=== PATIENT | male | born 1980 | race African-American/Black ===

== ENCOUNTER 2020-06-16 19:17 | Emergency (ER) | payer OTHER ==
[~2020-06-16] VITALS: Ht 170.2 cm; Wt 108.9 kg
[2020-06-16 19:41] LABS: URINE BILIRUBIN NEGATIVE (Negative); URINE BLOOD TRACE (Negative); URINE CLARITY CLEAR; URINE COLOR YELLOW; URINE GLUCOSE-RANDOM* NEGATIVE (Negative); URINE KETONES NEGATIVE (Negative); URINE LEUKOCYTES-REFLEX NEGATIVE (Negative); URINE NITRITE-REFLEX NEGATIVE (Negative); URINE PROTEIN (DIPSTICK) 2+ (Negative); URINE UROBILINOGEN 0.2 E.U./dl (0.2-1.0)
[2020-06-16 19:49] LABS: CASTS None Seen /LPF (None Seen); SQUAMOUS 4-10 Moderate /LPF (0-3)
[2020-06-16 19:50] LABS: BACTERIA-REFLEX None Seen /HPF (None Seen); CRYSTALS None Seen /LPF (None Seen); URINE RBC 0-2 Rare /HPF (0-2); URINE WBC-REFLEX 0-5 Rare /HPF (0-5)
[2020-06-16 19:55] LABS: ABSOLUTE NEUTROPHILS 5.4 thou/uL (1.4-8.2); BASOPHILS 0.9 % (0.0-2.0); EOSINOPHILS 1.2 % (0.0-3.0); HEMATOCRIT 44.9 % (42.0-52.0); HEMOGLOBIN 15.2 gm/dL (14.0-18.0); LYMPHOCYTES 19.9 % (24.0-44.0); MCH 30.7 pg (26.0-34.0); MCHC 33.9 g/dL (28.0-37.0); MCV 90.7 fL (80.0-100.0); MONOCYTES 6.2 % (1.0-8.0); PLATELET COUNT 253 thou/uL (150-400); POLYS 71.8 % (36.0-66.0); RBC 4.95 mil/uL (4.50-6.00); RDW 13.5 % (10.5-14.5); WBC 7.5 thou/uL (4.0-11.0)
[2020-06-16 20:11] LABS: CALCIUM 9.2 mg/dL (8.5-10.1); CREATININE 1.4 mg/dL (0.7-1.3)
[2020-06-16 20:17] LABS: ALBUMIN 4.4 g/dL (3.4-5.0); TOTAL BILIRUBIN 0.5 mg/dL (0.2-1.0)
[2020-06-16] MEDS ORDERED: LISINOPRIL10 MG PO (20:18)
[2020-06-16] MEDS ORDERED: NORVASC5 MG PO (20:18)
[2020-06-16] MEDS ORDERED: REGLAN 5 MG TAB5 MG PO (21:06)
[2020-06-16] MEDS ORDERED: POTASSIUM20 PO (21:09)
[2020-06-16 21:36] VITALS: BP 170/100
--- NOTE | 2020-06-17 11:19 | EKG ---
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: AFIA : 1980 Requested By: Chip Jaeger Order Number: [id number] MD: Rubens Valenzuela Measurements Intervals [place] Rate: 54 P: 14 ND: 159 QRS: 41 QRSD: 87 T: 196 QT: 449 QTc: 426 Interpretive Statements Sinus rhythm Abnormal T, consider ischemia Baseline wander in lead(s) V4 No previous ECG available for comparison Electronically Signed On 06-17-2020 11:19:41 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
== END 2020-06-16 21:25 | disposition home or self-care (01) ==
LOC: ER 19:17
PROVIDERS: Physician Assistant
DX: R11.2 Nausea with vomiting, unspecified (principal); E87.6 Hypokalemia; R10.13 Epigastric pain; I10 Essential (primary) hypertension; Z79.899 Other long term (current) drug therapy